=== PATIENT | female | born 1970 | race Caucasian/White ===

== ENCOUNTER 2017-09-01 15:49 | Inpatient (IN) ==
[2017-09-01] MEDS ORDERED: PANTOPRAZOLE 40 MG VIAL IV STA (16:34)
[2017-09-01] MEDS ORDERED: ONDANSETRON 4 MG/2 ML VIAL IV STA (16:34)
[2017-09-01] MEDS ORDERED: SODIUM CHLORIDE 0.9% 500 ML IV STA (16:34)
[2017-09-01] MEDS ORDERED: MORPHINE 4 MG/1 ML VIAL IV STA (16:34)
[2017-09-01 17:53] LABS: Basophils % 0.5 % (0.0-0.8); Eosinophils # 0.2 10*3/uL (0.0-0.87); Eosinophils % 4.6 % (0.00-10.9); Hematocrit 39.6 VOL% (35.7-47.0); Hemoglobin 12.7 GM/DL (12.0-16.0); Immature Granulocytes % 0.2 %; Immature Granulocytes Absolute 0.01 #; Lymphocytes # 1.5 10*3/uL (1.4-4.0); Mean Corpuscular HGB Conc 32.1 GM/DL (32-36); Mean Corpuscular Hemoglobin 28 PG (27-34); Mean Corpuscular Volume 88.6 FL (87-102); Mean Platelet Volume 10.4 FL (9.6-12.0); Monocytes # 0.3 10*3/uL (0.11-0.8); Monocytes % 7.3 % (1.7-12.7); Neutrophils # 2.3 10*3/uL (1.4-7.4); Neutrophils % 52.4 % (38.7-73.9); Platelet Count 301 T/CUMM (130-400); Red Blood Count 4.47 MC/CUMM (3.8-5.5); White Blood Count 4.4 T/CUMM (4-12)
[2017-09-01 18:03] LABS: Apearance,Urine Slightly Hazy (Clear); Bacteria,Urine Many /HPF (Few); Bilirubin,Urine Negative (Negative); Blood, Urine Small mg/dL (Negative); Glucose,Urine (UA) Negative (Negative); Hyaline Casts,Urine 3 /LPF (0-3); Ketones,Urine 5 mg/dL (Negative); Mucus,Urine Occasional /LPF (Occasional); Nitrite,Urine Negative (Negative); Protein,Urine 30 MG/DL; RBC,Urine 1 /HPF (0-4); Squamous Epithelial Cell,Urine Occasional /HPF (0-10); Urine Specific Gravity 1.027 (1.001-1.035); Urine Urobilinogen < 2.0 EU/DL (0.2-1.0); WBC,Urine 40 /HPF (0-6)
[2017-09-01 18:04] LABS: Urine Color Dark yellow (Yellow)
[2017-09-01] MEDS ORDERED: cefTRIAXone 1,000 MG in SODIUM CHLORIDE 0.9% 100 ML IV STA (18:10)
[2017-09-01 18:19] LABS: Lactic Acid 1.1 MMOL/L (0.4-2.0)
[2017-09-01 18:26] LABS: Alanine Aminotransferase 25 U/L (13-56); Albumin 3.4 G/DL (3.4-5.0); Alkaline Phosphatase 112 U/L (45-117); Amylase 57 U/L (25-115); Aspartate Amino Transferase 13 U/L (0-37); Bilirubin,Total < 0.39 MG/DL (0.2-1.0); Blood Urea Nitrogen 9 MG/DL (7-18); Calcium 9.3 MG/DL (8.5-10.1); Glucose 72 MG/DL (74-106); Osmolality,Calculated 274.5 MOS/KG (273-304); Potassium 4.3 MMOL/L (3.5-5.1); Sodium 139 MMOL/L (136-145); Total Protein 7.8 G/DL (6.4-8.3); Troponin I Only < 0.015 NG/ML (0.00-0.045)
[2017-09-01] MEDS ORDERED: DEXTROSE 50% 25 GM/50 ML VIAL IV STA (18:54)
[2017-09-01] MEDS ORDERED: DEXTROSE 50% 25 GM/50 ML SYRINGE IV ONE (19:10)
[2017-09-01] MEDS ORDERED: ONDANSETRON 4 MG/2 ML VIAL IV PRN (21:47)
[2017-09-01] MEDS ORDERED: METHOCARBAMOL 750 MG TABLET PO PRN (21:54)
[2017-09-01] MEDS ORDERED: SODIUM PHOSPHATE ENEMA 133 ML BOTTLE RECTAL ONE (22:30)
[2017-09-02] MEDS: MELATONIN 3 MG TABLET PO SCH ×2 (01:59→21:50)
[2017-09-02] MEDS: ZIPRASIDONE 20 MG CAPSULE PO SCH ×3 (01:59→21:50)
[2017-09-02] MEDS: ESCITALOPRAM 10 MG TABLET PO SCH ×4 (04:18→21:50)
[2017-09-02 07:39] LABS: Basophils % 0.6 % (0.0-0.8); Eosinophils # 0.2 10*3/uL (0.0-0.87); Eosinophils % 3.4 % (0.00-10.9); Hematocrit 33.9 VOL% (35.7-47.0); Hemoglobin 11.3 GM/DL (12.0-16.0); Immature Granulocytes % 0.2 %; Immature Granulocytes Absolute 0.01 #; Lymphocytes # 1.3 10*3/uL (1.4-4.0); Lymphocytes % 27.7 % (21.3-54.2); Mean Corpuscular HGB Conc 33.3 GM/DL (32-36); Mean Corpuscular Hemoglobin 29 PG (27-34); Mean Corpuscular Volume 86.7 FL (87-102); Monocytes # 0.4 10*3/uL (0.11-0.8); Monocytes % 7.5 % (1.7-12.7); Neutrophils # 2.9 10*3/uL (1.4-7.4); Neutrophils % 60.6 % (38.7-73.9); Platelet Count 291 T/CUMM (130-400); Red Blood Count 3.91 MC/CUMM (3.8-5.5); White Blood Count 4.8 T/CUMM (4-12)
[2017-09-02 08:09] LABS: Albumin 2.9 G/DL (3.4-5.0); Bilirubin,Total 0.5 MG/DL (0.2-1.0); Calcium 8.9 MG/DL (8.5-10.1); Osmolality,Calculated 279.1 MOS/KG (273-304); Potassium 3.6 MMOL/L (3.5-5.1); Total Protein 6.7 G/DL (6.4-8.3)
[2017-09-02] MEDS: MULTIVITAMIN (CENTRUM) TABLET PO SCH (08:18)
[2017-09-02] MEDS: amLODIPine 10 MG TABLET PO SCH (08:19)
[2017-09-02] MEDS: PANTOPRAZOLE 40 MG TABLET PO SCH (08:19)
[2017-09-02] MEDS: POLYETHYLENE GLYCOL POWDER 17 GM PACK PO SCH (08:19)
[2017-09-02] MEDS: MORPHINE 4 MG/1 ML VIAL IV PRN ×2 (09:32→14:50)
[2017-09-02] MEDS ORDERED: fentaNYL 100 MCG/2 ML VIAL IV ONE (11:25)
[2017-09-02] MEDS ORDERED: DIAZEPAM 5 MG TABLET PO ONE (11:25)
[2017-09-02] MEDS ORDERED: MIDAZOLAM 2 MG/2 ML VIAL IV ONE (11:25)
[2017-09-02] MEDS ORDERED: MORPHINE 10 MG/1 ML VIAL ONE (14:49)
[2017-09-02] MEDS ORDERED: MIDAZOLAM 2 MG/2 ML VIAL ONE (14:55)
[2017-09-02] MEDS: SODIUM CHLORIDE 0.45% 1,000 ML IV SCH (16:00)
[2017-09-02] MEDS: cefTRIAXone 1,000 MG in SYRINGE 1 EACH IV SCH (21:44)
[2017-09-03 06:57] LABS: Basophils % 0.5 % (0.0-0.8); Eosinophils # 0.2 10*3/uL (0.0-0.87); Eosinophils % 4.8 % (0.00-10.9); Hematocrit 35.6 VOL% (35.7-47.0); Hemoglobin 11.6 GM/DL (12.0-16.0); Immature Granulocytes % 0.3 %; Immature Granulocytes Absolute 0.01 #; Lymphocytes # 1.3 10*3/uL (1.4-4.0); Lymphocytes % 33.2 % (21.3-54.2); Mean Corpuscular HGB Conc 32.6 GM/DL (32-36); Mean Corpuscular Hemoglobin 29 PG (27-34); Mean Corpuscular Volume 88.8 FL (87-102); Mean Platelet Volume 10.2 FL (9.6-12.0); Monocytes # 0.4 10*3/uL (0.11-0.8); Monocytes % 8.9 % (1.7-12.7); Neutrophils # 2.1 10*3/uL (1.4-7.4); Neutrophils % 52.3 % (38.7-73.9); Platelet Count 293 T/CUMM (130-400); Red Blood Count 4.01 MC/CUMM (3.8-5.5); Red Cell Distribution Width 12.8 % (9.3-17.3)
[2017-09-03 07:23] LABS: Calcium 9.2 MG/DL (8.5-10.1); Osmolality,Calculated 276.3 MOS/KG (273-304); Potassium 3.7 MMOL/L (3.5-5.1)
[2017-09-03] MEDS: POLYETHYLENE GLYCOL POWDER 17 GM PACK PO SCH (09:10)
[2017-09-03] MEDS: BISACODYL 10 MG SUPP RECTAL SCH (09:10)
[2017-09-03] MEDS: PANTOPRAZOLE 40 MG TABLET PO SCH (09:10)
[2017-09-03] MEDS: oxyCODONE/ACETAMINOPHEN 5-325 MG TABLET PO PRN (09:10)
[2017-09-03] MEDS: ZIPRASIDONE 20 MG CAPSULE PO SCH ×2 (09:10→21:16)
[2017-09-03] MEDS: MULTIVITAMIN (CENTRUM) TABLET PO SCH (09:10)
[2017-09-03] MEDS: amLODIPine 10 MG TABLET PO SCH (09:10)
[2017-09-03] MEDS: SODIUM CHLORIDE 0.45% 1,000 ML IV SCH (18:35)
[2017-09-03] MEDS: ESCITALOPRAM 10 MG TABLET PO SCH (21:17)
[2017-09-03] MEDS: MELATONIN 3 MG TABLET PO SCH (21:17)
[2017-09-03] MEDS: cefTRIAXone 1,000 MG in SYRINGE 1 EACH IV SCH (21:17)
[2017-09-04] MEDS: MULTIVITAMIN (CENTRUM) TABLET PO SCH (09:02)
[2017-09-04] MEDS: ZIPRASIDONE 20 MG CAPSULE PO SCH ×2 (09:02→20:25)
[2017-09-04] MEDS: PANTOPRAZOLE 40 MG TABLET PO SCH (09:02)
[2017-09-04] MEDS: POLYETHYLENE GLYCOL POWDER 17 GM PACK PO SCH (09:02)
[2017-09-04] MEDS: amLODIPine 10 MG TABLET PO SCH (09:02)
[2017-09-04] MEDS: SODIUM CHLORIDE 0.45% 1,000 ML IV SCH (12:36)
[2017-09-04] MEDS: ESCITALOPRAM 10 MG TABLET PO SCH (20:25)
[2017-09-04] MEDS: MELATONIN 3 MG TABLET PO SCH (20:26)
[2017-09-04] MEDS: cefTRIAXone 1,000 MG in SYRINGE 1 EACH IV SCH (20:26)
[2017-09-05] MEDS: oxyCODONE/ACETAMINOPHEN 5-325 MG TABLET PO PRN (08:40)
[2017-09-05] MEDS: ZIPRASIDONE 20 MG CAPSULE PO SCH ×2 (10:59→21:27)
[2017-09-05] MEDS: POLYETHYLENE GLYCOL POWDER 17 GM PACK PO SCH (11:00)
[2017-09-05] MEDS: amLODIPine 10 MG TABLET PO SCH (11:01)
[2017-09-05] MEDS: PANTOPRAZOLE 40 MG TABLET PO SCH (11:01)
[2017-09-05] MEDS: MULTIVITAMIN (CENTRUM) TABLET PO SCH (11:01)
[2017-09-05] MEDS: BISACODYL 10 MG SUPP RECTAL SCH (11:01)
[2017-09-05] MEDS: SODIUM CHLORIDE 0.45% 1,000 ML IV SCH (13:34)
[2017-09-05] MEDS: ESCITALOPRAM 10 MG TABLET PO SCH (21:27)
[2017-09-05] MEDS: MELATONIN 3 MG TABLET PO SCH (21:28)
[2017-09-05] MEDS: cefTRIAXone 1,000 MG in SYRINGE 1 EACH IV SCH (21:29)
[2017-09-06] MEDS: oxyCODONE/ACETAMINOPHEN 5-325 MG TABLET PO PRN (04:40)
[2017-09-06 06:38] LABS: Basophils % 0.4 % (0.0-0.8); Eosinophils # 0.2 10*3/uL (0.0-0.87); Eosinophils % 4.2 % (0.00-10.9); Hematocrit 37.1 VOL% (35.7-47.0); Hemoglobin 12.3 GM/DL (12.0-16.0); Immature Granulocytes % 0.2 %; Immature Granulocytes Absolute 0.01 #; Lymphocytes # 1.1 10*3/uL (1.4-4.0); Lymphocytes % 24.9 % (21.3-54.2); Mean Corpuscular HGB Conc 33.2 GM/DL (32-36); Mean Corpuscular Hemoglobin 29 PG (27-34); Mean Corpuscular Volume 87.7 FL (87-102); Mean Platelet Volume 10.8 FL (9.6-12.0); Monocytes # 0.4 10*3/uL (0.11-0.8); Monocytes % 7.9 % (1.7-12.7); Neutrophils # 2.8 10*3/uL (1.4-7.4); Neutrophils % 62.4 % (38.7-73.9); Platelet Count 198 T/CUMM (130-400); Red Blood Count 4.23 MC/CUMM (3.8-5.5); Red Cell Distribution Width 13.2 % (9.3-17.3); White Blood Count 4.5 T/CUMM (4-12)
[2017-09-06 06:53] LABS: Calcium 9.5 MG/DL (8.5-10.1); Osmolality,Calculated 270.8 MOS/KG (273-304)
[2017-09-06] MEDS: MULTIVITAMIN (CENTRUM) TABLET PO SCH (08:48)
[2017-09-06] MEDS: ZIPRASIDONE 20 MG CAPSULE PO SCH ×2 (08:48→21:22)
[2017-09-06] MEDS: amLODIPine 10 MG TABLET PO SCH (08:49)
[2017-09-06] MEDS: POLYETHYLENE GLYCOL POWDER 17 GM PACK PO SCH (08:49)
[2017-09-06] MEDS: PANTOPRAZOLE 40 MG TABLET PO SCH (08:50)
[2017-09-06] MEDS: SODIUM CHLORIDE 0.45% 1,000 ML IV SCH (12:37)
[2017-09-06] MEDS: ESCITALOPRAM 10 MG TABLET PO SCH (21:22)
[2017-09-06] MEDS: cefTRIAXone 1,000 MG in SYRINGE 1 EACH IV SCH (21:24)
[2017-09-06] MEDS: MELATONIN 3 MG TABLET PO SCH (21:24)
[2017-09-07] MEDS: oxyCODONE/ACETAMINOPHEN 5-325 MG TABLET PO PRN (04:29)
[2017-09-07 05:48] LABS: Basophils % 0.4 % (0.0-0.8); Eosinophils # 0.2 10*3/uL (0.0-0.87); Eosinophils % 3.1 % (0.00-10.9); Hematocrit 38.2 VOL% (35.7-47.0); Hemoglobin 12.4 GM/DL (12.0-16.0); Immature Granulocytes % 0.4 %; Immature Granulocytes Absolute 0.02 #; Lymphocytes # 1.2 10*3/uL (1.4-4.0); Lymphocytes % 24.2 % (21.3-54.2); Mean Corpuscular HGB Conc 32.5 GM/DL (32-36); Mean Corpuscular Hemoglobin 28 PG (27-34); Mean Corpuscular Volume 87.4 FL (87-102); Mean Platelet Volume 10.1 FL (9.6-12.0); Monocytes # 0.4 10*3/uL (0.11-0.8); Monocytes % 7.5 % (1.7-12.7); Neutrophils # 3.3 10*3/uL (1.4-7.4); Neutrophils % 64.4 % (38.7-73.9); Platelet Count 311 T/CUMM (130-400); Red Blood Count 4.37 MC/CUMM (3.8-5.5); Red Cell Distribution Width 13.1 % (9.3-17.3); White Blood Count 5.1 T/CUMM (4-12)
[2017-09-07 06:24] LABS: Calcium 9.3 MG/DL (8.5-10.1); Osmolality,Calculated 272.7 MOS/KG (273-304)
[2017-09-07] MEDS: BISACODYL 10 MG SUPP RECTAL SCH (08:54)
[2017-09-07] MEDS: amLODIPine 10 MG TABLET PO SCH (08:58)
[2017-09-07] MEDS: PANTOPRAZOLE 40 MG TABLET PO SCH (08:58)
[2017-09-07] MEDS: ZIPRASIDONE 20 MG CAPSULE PO SCH (08:58)
[2017-09-07] MEDS: POLYETHYLENE GLYCOL POWDER 17 GM PACK PO SCH (08:58)
[2017-09-07] MEDS: MULTIVITAMIN (CENTRUM) TABLET PO SCH (08:58)
[2017-09-07 11:40] VITALS: BP 125/71
== END 2017-09-07 13:50 | DRG 607 ==
LOC: N.ED 15:49 → SUATTDRO 21:48 → N.EDINP 21:48 → N.3E 09-02 00:32
PROVIDERS: ADMIT Internal Medicine; ATTEND Internal Medicine